=== PATIENT | male | born 1930 | race Caucasian/White ===

== ENCOUNTER 2020-12-25 12:31 | Inpatient (IN) | payer OTHER, BC ==
[2020-12-25] VITALS (7 sets, daily range): BP systolic 128–186; BP diastolic 79–100
[~2020-12-25] VITALS: Ht 175.3 cm; Wt 83.5 kg
[~2020-12-25 12:31] MED LIST: DIOVAN; LOVASTATIN
[2020-12-25] MEDS ORDERED: TAMSULOSIN HCL0.4 MG PO (12:44)
[2020-12-25] MEDS ORDERED: LATANOPROST 0.2.5 ML OPHTHALMIC (12:44)
[2020-12-25] MEDS ORDERED: COSOPT OCUMETER10 M1 EA. EYE (12:45)
[2020-12-25 13:09] LABS: ABSOLUTE NEUTROPHILS 5.5 thou/uL (1.4-8.2); BASOPHILS 1.3 % (0.0-2.0); HEMATOCRIT 46.1 % (42.0-52.0); HEMOGLOBIN 15.6 gm/dL (14.0-18.0); LYMPHOCYTES 12.5 % (24.0-44.0); MCH 32.2 pg (26.0-34.0); MCHC 33.8 g/dL (28.0-37.0); MCV 95.1 fL (80.0-100.0); MONOCYTES 10.4 % (1.0-8.0); PLATELET COUNT 245 thou/uL (150-400); POLYS 67.8 % (36.0-66.0); RBC 4.84 mil/uL (4.50-6.00)
[2020-12-25 13:20] LABS: CALCIUM 8.7 mg/dL (8.5-10.1); POTASSIUM 3.6 mmol/L (3.5-5.1)
[2020-12-25 13:23] LABS: APTT 26.8 Seconds (24.5-32.8); PROTIME 10.9 Seconds (10.5-12.1)
[2020-12-25 13:26] LABS: ALBUMIN 3.4 g/dL (3.4-5.0); TOTAL BILIRUBIN 0.9 mg/dL (0.2-1.0); TOTAL PROTEIN 6.7 g/dL (6.4-8.2)
--- NOTE | 2020-12-25 16:39 | NUR ---
PATIENT ARRIVED FROM ED AT APPROX 1500. PATIENT COMPLETELY CONFUSED; ALERT TO SELF AND PLACE AT TIMES BUT VERY FORGETFUL. PATIENT WAS UPX1 TO BSC W GB AND VOIDED GABINO RED BLOOD WITH VISIBLE CLOTS. H&H WERE IN RANGE IN ED BUT NOT REDRAWN ON FLOOR. PATIENT WAS TAKEN TO IR BY RN VIA BED. BAG OF SALINE SENT DOWN WITH PATIENT.
[2020-12-25 18:37] LABS: HEMATOCRIT 38.8 % (42.0-52.0)
[2020-12-25 18:40] LABS: HEMOGLOBIN 13.1 gm/dL (14.0-18.0)
--- NOTE | 2020-12-25 19:17 | NUR ---
PT TRANSFERED TO UNIT POST PROCEDURE FROM [facility]. ASSESSMENT CHARTED - PT CONFUSED - TRYING TO SIT UP IN BED - GROIN HAS REMAINED STABLE MINX PRESENT. HEAMOSTATIS @1730. IV FLUIDS ORDERED. FAMILY AT THE BEDSIDE. PT REMAINS NPO - NO CO'S AT THE PRESENT TIME.
[2020-12-26 00:59] LABS: ABSOLUTE NEUTROPHILS 7.6 thou/uL (1.4-8.2); BASOPHILS 0.9 % (0.0-2.0); EOSINOPHILS 6.4 % (0.0-3.0); HEMATOCRIT 43.3 % (42.0-52.0); HEMOGLOBIN 14.7 gm/dL (14.0-18.0); LYMPHOCYTES 9.7 % (24.0-44.0); MCH 32.2 pg (26.0-34.0); MCV 94.7 fL (80.0-100.0); PLATELET COUNT 243 thou/uL (150-400); RBC 4.57 mil/uL (4.50-6.00); RDW 14.8 % (10.5-14.5); WBC 10.1 thou/uL (4.0-11.0)
[2020-12-26 01:03] LABS: CALCIUM 8.5 mg/dL (8.5-10.1); CREATININE 0.9 mg/dL (0.7-1.3); MAGNESIUM 1.9 mg/dL (1.8-2.4); POTASSIUM 3.9 mmol/L (3.5-5.1)
[2020-12-26 03:51] VITALS: BP 153/96
[2020-12-26 07:33] VITALS: BP 153/96
[2020-12-26 08:50] VITALS: BP 133/93
[2020-12-26 12:30] VITALS: BP 84/61
--- NOTE | 2020-12-26 12:37 | NUR ---
PT IS AXOX1, SOMETIMES DISORIENTED X4. PT IS ALERT TO SELF, BUT SOMETIMES IS UNABLE TO VERBALIZE WHO HE IS. VSS, AFEBRILE, SR ON MONITOR. PT D/C IV L AC FROM ARM. RN PLACED SECOND IV IN L FA. PT D/C IV FROM ARM. DR RILEY CONSULTED. FLUIDS D/C. GI CONSULTED. PT HAD BLOODY BM WITH SOME FORMED STOOL. PT PLACED ON CLEAR LIQUID DIET. PT/OT CONSULTED. FALL PRECAUTIONS IN PLACE. FAMILY AT THE BEDSIDE. FREQUENT ROUNDING.
--- NOTE | 2020-12-26 13:35 | NUR ---
Initally met with patient who appears to have dementia and confused. Patient admits with GI bleed. Son and arrived to visit. Sp with them in room. patient resides in independent home with son/. All needs on one level. patient with hx of dementia and known to some days wander in evening. Patient has a walker and wc. family has consistant routine. Patient awake some evenings. He usually awakes at 10:00am and lunch at 1400. Family assists with ADLS. PCP Dr Fair. Tenative plan for colonoscopy in am. Patient has rec HH in past with [facility] care. Son reports need to determine course of tx and care prior to determine dc needs. Casemgt following.
[2020-12-26 14:14] LABS: HEMATOCRIT 38.4 % (42.0-52.0); HEMOGLOBIN 13.1 gm/dL (14.0-18.0)
--- NOTE | 2020-12-26 14:59 | NUR ---
BPCI letter and preferred provider list provided to patient family, patient sleeping, patient lives in home setting
[2020-12-26 16:46] VITALS: BP 122/81
[2020-12-26 18:56] VITALS: BP 98/65
[2020-12-27 03:35] VITALS: BP 146/86
[2020-12-27 04:00] LABS: HEMOGLOBIN 12.8 gm/dL (14.0-18.0); MCH 32.9 pg (26.0-34.0); MCHC 34.7 g/dL (28.0-37.0); MCV 94.7 fL (80.0-100.0); RBC 3.91 mil/uL (4.50-6.00); RDW 14.7 % (10.5-14.5); WBC 8.3 thou/uL (4.0-11.0)
--- NOTE | 2020-12-27 05:07 | NUR ---
PTS SON AT BEDSIDE THRU THE NOC, REMAINS CONFUSED, INCON'T, DID HAVE LARGE FORMED DARK MAROON STOOL PER BED ORTIZ, VSS, NO C/O PAIN, WILL CON'T TO MONITOR PER PPOC.
--- NOTE | 2020-12-27 11:15 | NUR ---
PT IS AXOX1, KNOWS SELF. PT HAD TWO BLOODY STOOLS ACCORDING TO PREVIOUS SHIFT. HGB 12.8. DR URBINA CONSULTED. PT HAS BEEN NPO SINCE MIDNIGHT. 500CC TAP WATER ENEMA GIVEN PER DR URBINA. PT TO HAVE FLEX SIG THIS PM. CONSENT OBTAINED FROM FAMILY FOR PROCEDURE.
[2020-12-27 15:46] VITALS: BP 144/91
--- NOTE | 2020-12-27 18:57 | NUR ---
RECEIEVED PATIENT COSNCIOUS, IDENTIFIES SELF BUT STILL CONFUSED.ON ROOM AIR BREATHING SPONTANEOUSLY.NOT IN PAIN OR DISTRESS.ON NPO.HAD FLEXIBLE SIGMOIDOSCOPY TODAY,FOUND DIVERTICULI, NO INTERVENTIONS DONE, ONLY FOR OBSEERVATION FOR ANY FURTHER BLEEDING.CAME BACK STABLE.RESUMED DIET, WAS ABLE TO HAVE HIS DINER.ALL NEEDS ATTENDED.FALL PREVENTION MEASURES MAINTAINED THROUGHOUT THE SHIFT.
[2020-12-27 20:20] VITALS: BP 172/92
[2020-12-28 04:19] LABS: HEMATOCRIT 37.7 % (42.0-52.0); HEMOGLOBIN 13.1 gm/dL (14.0-18.0); MCH 32.5 pg (26.0-34.0); MCHC 34.7 g/dL (28.0-37.0); MCV 93.6 fL (80.0-100.0); RBC 4.03 mil/uL (4.50-6.00); RDW 14.5 % (10.5-14.5)
--- NOTE | 2020-12-28 06:32 | NUR ---
ASSESSMENTS CHARTED, MEDS CHARTED GIVEN. PATIENT HAS FAMILY AT BEDSIDE TO HELP WITH CONFUSION. PATIENT RESTING IN BED DURING SHIFT. PATIENT CONFUSED DURING ENTIRE SHIFT. PATIENT ON MAINTENANCE FLUIDS, INCONTINENT. PATIENT FIGHTS AGAINST BEING CLEANED UP, EVEN WITH EDUCATION. PATIENT HAD LARGE BLACK TARRY STOOL DURING SHIFT. FALL PRECAUTIONS IN PLACE DURING SHIFT.
[2020-12-28 11:36] VITALS: BP 172/92
--- NOTE | 2020-12-28 13:02 | NUR ---
ASSESSMENT CHARTED. PT ALERT TO SELF WITH CONFUSION. VSS. SB ON TELE. SON AT THE BEDSIDE. ORDERS GIVEN TO DISCHARGE PT TO HOME. DISCHARGE INSTRUCTIONS GIVEN TO PT'S SON. PT'S SON VERBERLISED UNDERSTANDING.
--- NOTE | 2020-12-31 09:02 | P ---
[facility] [place] [address] PROCEDURE REPORT Name: SIM CALVERT Room #: 202-P [facility]..#: [id number] Admission: 12/25/20 Attend Phys: Jl Forte MD Discharge: 12/28/20 Date of : [birth year] Report #: [id number] THIS REPORT FOR: cc: Rudy Fair MD, Rene P. MD McElhinney, Christian C. MD ~ DOC #: [id number] cc: Jl Forte MD, MD Kristopher Cano MD DATE OF SERVICE: 12/27/2020 PROCEDURE PERFORMED: Flexible sigmoidoscopy. HISTORY OF PRESENT ILLNESS: The patient is an 89-year-old male who was admitted on 12/25/2020 for hematochezia. The patient has severe dementia, but the history was primarily obtained through his family. He was passing bright red blood with clots. Admit hemoglobin was 15.6. This has slowly trended down to 12.8. Initially on admission, he underwent a CT scan of the abdomen and pelvis on 12/25/2020, which did show active contrast extravasation seen within the distal rectosigmoid colon consistent with active hemorrhage. At that point, he then underwent an arteriogram by Dr. Romero in IR. He was able to see the bleeding source through the inferior mesenteric artery, but was unable to reach the distal branch. The plan at that point was to observe. It appeared the bleeding has stopped. However, he had another bowel movement with blood in it overnight and again his hemoglobin has trended down slightly. Therefore, I discussed with the family the options and the plan is to proceed with a flexible sigmoidoscopy. DESCRIPTION OF PROCEDURE: The risks and benefits of the procedure were explained to the patient's family, those risks including but not limited to bleeding, perforation and the risk of sedation. They understood these risks and gave informed consent. Sedation was given using propofol per anesthesia. Next, a digital rectal exam was initially performed, which was normal. Next, using a standard Olympus colonoscope, the scope was placed in the patient's anus and advanced under direct vision into the proximal sigmoid colon. The overall prep was fairly poor in many areas, but multiple washings and aspirations were performed. In the proximal and mid sigmoid colon, multiple diverticula were noted. Brown stool was noted in this area. In the distal sigmoid colon, however, there was more maroon and older appearing blood in this region consistent with where the bleeding was noted on CT scan. I spent approximately 20-30 minutes performing multiple washings and aspirations in the distal sigmoid colon. There was no evidence of colitis. No masses were noted. No polyps were seen. There was no evidence of diverticulitis, although I spent a long period of time looking at multiple diverticula. I did not see a sign of bleeding from any of the diverticula that were seen. There was no evidence of active bleeding [address] [address] PROCEDURE REPORT Name: SIM CALVERT Room #: 202-P [facility] .R.#: [id number] Admission: 12/25/20 Attend Phys: Jl Forte MD Discharge: 12/28/20 Date of : [birth year] Report #: [id number] at this time. The rectal mucosa was normal. On retroflexion, no abnormalities other than small internal hemorrhoids noted. No evidence of bleeding. The scope was then withdrawn and the procedure terminated. The patient tolerated the procedure well. IMPRESSION: Diverticulosis involving the entire left colon. There was no evidence of active bleeding today as described above. Suspect this was a diverticular bleed, which has now stopped. Plan is to observe at this point. If the patient would have significant further bleeding in the future, may need to consider surgical options. Thank you for allowing me to participate in his care. Kristopher Davis MD CCM/ELSA <ELECTRONICALLY SIGNED> By: Kristopher Davis MD 12/31/20901 1153 10 Kristopher Davis MD /iman
== END 2020-12-28 13:40 | disposition home or self-care (01) | DRG 358 ==
LOC: ER 12:31 → EROBS 13:44 → 2N 13:44 → 4W 14:28 → 2N 16:27
PROVIDERS: Emergency Medicine; Nurse Practitioner; ADMIT Hospitalist; ATTEND Hospitalist
DX: K57.31 Diverticulosis of large intestine without perforation or abscess with bleeding (principal); E78.00 Pure hypercholesterolemia, unspecified; M19.90 Unspecified osteoarthritis, unspecified site; E78.5 Hyperlipidemia, unspecified; N40.0 Benign prostatic hyperplasia without lower urinary tract symptoms; F03.90 Unspecified dementia, unspecified severity, without behavioral disturbance, psychotic disturbance, mood disturbance, and anxiety; I10 Essential (primary) hypertension; Z90.49 Acquired absence of other specified parts of digestive tract; Z79.899 Other long term (current) drug therapy
CPT/HCPCS: 10081; 62110; 62900; 70005